=== PATIENT | female | born 1960 | race Caucasian/White ===

== ENCOUNTER 2023-11-10 12:36 | Inpatient (IN) | payer OTHER, SELFPAY ==
[2023-11-10] VITALS (23 sets, daily range): BP systolic 96–158; BP diastolic 48–107; PULSE 79–113; TEMP 36.3–36.8; O2SAT 74–95; BMI 59.2; BMI 61.6
--- NOTE | 2023-11-10 12:52 | ECG_ITS ---
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
--- NOTE | 2023-11-10 12:52 | XR_ITS ---
[address] [address] Patient Name: COLLETTE WU MRN: [id number] date: 1960 Sex: F Assigned Patient Location: ER Current Patient Location: ED.MAIN Accession/Order Number: [id number] Exam Date: 11/10/2023 13:25 Report Date: 11/10/2023 13:46 At the request of: PARADISE MASSEY Procedure: XR chest 1V EXAMINATION: XR chest 1V HISTORY: SOB COMPARISON: No relevant comparison available. TECHNIQUE: AP portable FINDINGS: LUNGS: Moderate focal infiltrate in the right upper lung zone. The left lung is clear. VASCULATURE: No increased pulmonary vasculature. PLEURA: No pneumothorax, effusion, or pleural thickening. CARDIAC: No cardiomegaly or cardiac silhouette abnormality. MEDIASTINUM: No visible mass or adenopathy. BONES: No fracture or visible bone lesion. OTHER: Negative. XR/XR chest 1V IMPRESSION: Right upper lobe pneumonia. Electronically authenticated by: NATALI BARRIOS Date: 11/10/2023 13:46
--- NOTE | 2023-11-10 12:53 | ED.SOB1 ---
HPI - SOB/Dyspnea General Chief Complaint: Shortness of Breath/Dyspnea Stated Complaint: SHORTNESS OF BREATH Time Seen by Provider: 11/10/23 12:48 Source: patient Mode of arrival: Wheelchair Limitations: no limitations History of Present Illness HPI Narrative: 63-year-old female presents for shortness of breath. She has had this for 3 days. She has been coughing up some green to yellow-colored phlegm. Her daughter is also ill but the patient does not know what the daughter has. She has not had a known fever. Her left leg is swollen but that is always the case. She is not complaining of chest pain. Related Data Home Medications ?Medication ?Instructions ?Recorded ?Confirmed amlodipine 10 mg tablet (Norvasc) 10 mg PO DAILY 11/10/23 11/10/23 duloxetine 30 mg capsule,delayed 30 mg PO DAILY 11/10/23 11/10/23 release (Cymbalta) furosemide 40 mg tablet 40 mg PO DAILY 11/10/23 11/10/23 losartan 100 mg tablet (Cozaar) 100 mg PO DAILY 11/10/23 11/10/23 metoprolol succinate 25 mg capsule 25 mg PO DAILY 11/10/23 11/10/23 sprinkle, ext. release 24 hr Allergies Allergy/AdvReac Type Severity Reaction Status Date / Time No Known Drug Allergies Allergy Verified 11/10/23 12:49 Review of Systems ROS Narrative A ten point review of systems is negative except as noted above. Exam Narrative Exam Narrative: Nurses note and vital signs reviewed and patient is not hypoxic. General: The patient appears dyspneic. She is not in acute distress. Skin: Warm, dry, no pallor noted. There is no rash noted. Head: Normocephalic, atraumatic Eye: Normal conjunctiva, no drainage Ears, Nose, Mouth, and Throat: oral mucosa is moist. Nares patent. Respiratory: Breath sounds are equal bilaterally. No rhonchi noted. Back: non-tender GI: Obese soft and nontender Musculoskeletal: Bilateral ankle edema present, more on the left than the right. Neurological: A&O, normal speech Psychiatric: Cooperative Constitutional Vital Signs, click to edit/add: Last Vital Signs Temp 98.3 F 11/10/23 12:41 Pulse 85 11/10/23 13:30 Resp 21 H 11/10/23 13:30 BP 108/83 05/06/24 13:30 Pulse Ox 93 L 11/10/23 13:30 O2 Del Method Room Air 11/10/23 13:05 O2 Flow Rate 4 11/10/23 13:05 Course Vital Signs Vital signs: Vital Signs Temperature 98.3 F 11/10/23 12:41 Pulse Rate 86 11/10/23 12:41 Respiratory Rate 30 H 11/10/23 12:41 Blood Pressure 158/102 H 11/10/23 12:41 Pulse Oximetry 74 L 11/10/23 12:41 Oxygen Delivery Method Room Air 11/10/23 12:41 Temperature 98.3 F 11/10/23 12:41 Pulse Rate 85 11/10/23 13:30 Respiratory Rate 21 H 11/10/23 13:30 Blood Pressure 108/83 11/10/23 13:30 Pulse Oximetry 93 L 11/10/23 13:30 Oxygen Delivery Method Room Air 11/10/23 13:05 Oxygen Delivery Flow Rate 4 11/10/23 13:05 MDM - SOB/Dyspnea MDM Narrative Medical decision making narrative: The patient presented with cough and an O2 sat of 74% on room air. She quickly came up to the lower 90s on nasal cannula oxygen. Blood cultures were obtained and a chest x-ray shows right upper lobe pneumonia. She was ordered IV Rocephin and Zithromax and will be admitted. Findings are discussed with the patient and her family. COVID and influenza test are negative. She had quit smoking in 1988 and has no history of COPD. Differential Diagnosis Differential diagnosis: Likely congestive heart failure, community acquired pneumonia, asthma with exacerbation and other (Pneumonia, influenza, COVID) Lab Data Attestation: I reviewed the patient's lab results. Labs: Lab Results 11/10/23 11/10/23 Range/Units 12:53 13:11 WBC 11.4 H (4.0-11.0) 10^3/uL RBC 4.43 (4.20-5.40) 10^6/uL Hgb 13.7 (12.0-16.0) g/dL Hct 41.2 (36.0-48.0) % MCV 93.0 (81.0-99.0) fL MCH 30.9 (26.7-34.0) pg MCHC 33.3 (29.9-35.2) g/dL RDW 12.9 (11.0-15.0) % Plt Count 334 (150-450) 10^3/uL MPV 10.0 (9.5-13.5) fL Neut % (Auto) 68.8 (43.0-75.0) % Lymph % (Auto) 21.0 (20.5-60.0) % [place] % (Auto) 6.9 (1.7-12.0) % Eos % (Auto) 2.2 (0.9-7.0) % Baso % (Auto) 0.8 (0.2-2.0) % Neut # (Auto) 7.8 H (1.4-6.5) 10^3/uL Lymph # (Auto) 2.4 (1.2-3.8) 10^3/uL [place] # (Auto) 0.8 (0.3-0.8) 10^3/uL Eos # (Auto) 0.3 (0.0-0.7) 10^3/uL Baso # (Auto) 0.1 (0.0-0.1) 10^3/uL Abs Immat Gran (auto) 0.03 (0.00-0.03) 10^3/uL Imm/Tot Granulo (auto) 0.3 (0.0-0.5) % Influenza Type A Ag Negative Influenza Type B Ag Negative SARS-CoV-2 Ag (CV2AG) Negative (NEGATIVE) Imaging Data Chest x-ray: Radiologist's impression: ITS Impressions Chest X-Ray 11/10/23 12:52 IMPRESSION: Right upper lobe pneumonia. Electronically authenticated by: NATALI BARRIOS Date: 11/10/2023 13:46 Discharge Plan Discharge Chief Complaint: Shortness of Breath/Dyspnea Clinical Impression: Hypoxemia, Right upper lobe pneumonia Patient Disposition: Admitted As Inpatient Time of Disposition Decision: 13:58 Condition: Fair
--- NOTE | 2023-11-10 13:24 | PC.NURSE ---
Upon arrival pt. was hypoxic at 74 percent. Pt. was placed on 4L and is not at 92 percent. Pt. has since then been laughing and presenting at a better state.
[2023-11-10 13:35] LABS: Basophils Absolute Auto 0.1 10^3/uL (0.0-0.1); Basophils Percent Auto 0.8 % (0.2-2.0); Eosinophils Absolute Auto 0.3 10^3/uL (0.0-0.7); Eosinophils Percent Auto 2.2 % (0.9-7.0); Hematocrit 41.2 % (36.0-48.0); Hemoglobin 13.7 g/dL (12.0-16.0); Immature Granulocytes Abs Auto 0.03 10^3/uL (0.00-0.03); Immature Granulocytes Pct Auto 0.3 % (0.0-0.5); Lymphocytes Absolute Auto 2.4 10^3/uL (1.2-3.8); Mean Corpuscular HGB Conc 33.3 g/dL (29.9-35.2); Mean Corpuscular Hemoglobin 30.9 pg (26.7-34.0); Monocytes Absolute Auto 0.8 10^3/uL (0.3-0.8); Monocytes Percent Auto 6.9 % (1.7-12.0); Neutrophils Absolute Auto 7.8 10^3/uL (1.4-6.5); Neutrophils Percent Auto 68.8 % (43.0-75.0); Platelet Count 334 10^3/uL (150-450); Red Blood Count 4.43 10^6/uL (4.20-5.40); Red Cell Distribution Width 12.9 % (11.0-15.0); White Blood Count 11.4 10^3/uL (4.0-11.0)
[2023-11-10 13:44] LABS: Influenza Virus A Antigen Negative; Influenza Virus B Antigen Negative; Internal Control Within Normal Limits; SARS-CoV-2 Ag NEGATIVE (NEGATIVE)
[2023-11-10] MEDS: CEFTRIAXONE 1,000 MG in 0.9 % SODIUM CHLORIDE 50 ML 100 MG IV (13:52)
[2023-11-10 14:10] LABS: Anion Gap 15.4; BUN Creatinine Ratio 20.9; Carbon Dioxide 23.7 mmol/L (21.0-32.0); Chloride 103 mmol/L (98-107); Estimated GFR (African America >60 (>=60); Estimated GFR (Non-African Ame >60 (>=60); Glucose 124 mg/dL (74-106); Potassium 4.1 mmol/L (3.5-5.1); Sodium 138 mmol/L (136-145); Troponin I High Sensitivity 17.8 pg/mL (4.0-51.3)
[2023-11-10 14:11] LABS: Lactate/Lactic Acid 2.1 mmol/L (0.4-2.0)
[2023-11-10] MEDS: AZITHROMYCIN 500 MG in 0.9 % SODIUM CHLORIDE 250 ML 250 MG IV (14:30)
[2023-11-10 14:54] LABS: PROCALCITONIN <0.05 ng/mL (0.00-0.50)
[2023-11-10 16:13] LABS: Adenovirus NOT DETECTED (NOT DETECTE); Bordetella parapertussis NOT DETECTED (NOT DETECTE); Coronavirus 229E NOT DETECTED (NOT DETECTE); Coronavirus HKU1 NOT DETECTED (NOT DETECTE); Coronavirus NL63 NOT DETECTED (NOT DETECTE); Coronavirus OC43 NOT DETECTED (NOT DETECTE); Human Metapneumovirus NOT DETECTED (NOT DETECTE); Human Rhinovirus/Enterovirus NOT DETECTED (NOT DETECTE); Influenza A NOT DETECTED (NOT DETECTE); Influenza B NOT DETECTED (NOT DETECTE); Mycoplasma pneumoniae NOT DETECTED (NOT DETECTE); Parainfluenza Virus 1 NOT DETECTED (NOT DETECTE); Parainfluenza Virus 2 NOT DETECTED (NOT DETECTE); Parainfluenza Virus 3 NOT DETECTED (NOT DETECTE); Parainfluenza Virus 4 NOT DETECTED (NOT DETECTE); Respiratory Syncytial Virus NOT DETECTED (NOT DETECTE); SARS-CoV-2 NOT DETECTED (NOT DETECTE)
[2023-11-10 16:34] LABS: D Dimer 3.09 mg/L FEU (<=0.59)
[2023-11-10 16:35] LABS: Lactate/Lactic Acid 1.5 mmol/L (0.4-2.0)
[2023-11-10] MEDS: ENOXAPARIN SODIUM 100 MG/ML SYRINGE 150 MG SUBQ (16:50)
[2023-11-10] MEDS: LACTATED RINGER'S SOLUTION 1,000 ML 125 ML IV (16:52)
--- NOTE | 2023-11-10 17:40 | CT_ITS ---
[address] [address] Patient Name: COLLETTE WU MRN: [id number] date: 1960 Sex: F Assigned Patient Location: MS Current Patient Location: Accession/Order Number: [id number] Exam Date: 11/10/2023 17:32 Report Date: 11/10/2023 18:04 At the request of: TALON SPEAR Procedure: CT angio chest EXAM: CT angio chest HISTORY: Hypoxia, elevated D-dimer, suspected PE COMPARISON: None. TECHNIQUE: CT chest with intravenous contrast was performed with timing for the evaluation for pulmonary arteries. Multiplanar reformats were performed. MIP (maximum intensity projection) images or 3D post processing was performed. Dose reduction techniques were achieved by using automated exposure control and/or adjustment of mA and/or kV according to patient size and/or use of iterative reconstruction technique. FINDINGS: Lungs: No pneumothorax. Patchy bilateral consolidations, seen in the right upper and left lower lobes, representing multifocal pneumonia or pulmonary infarction. Airways: Normal. Mediastinum: No adenopathy. Aorta: No aneurysm. Cardiac: Bilateral ventricles measure 4.1 cm without reflux of contrast into the IVC. No definite evidence of heart strain. Correlation with echocardiography and clinical symptoms is recommended. No pericardial effusion. Pulmonary vasculature: Filling defect of the distal right pulmonary artery, extending to the segmental branches of the right upper and lower lobes and filling defect involving segmental branches of the left lower lobes. Prominent main pulmonary artery, measuring 3.6 cm, can be due to pulmonary emphysema or chronic hypertension. Bones: No acute bony abnormality. Axilla: No adenopathy. Thyroid gland: No abnormality demonstrated on provided imaging. Soft tissues: Unremarkable. Upper abdomen: Unremarkable. Additional findings: None. CT/CT angio chest IMPRESSION: Acute pulmonary embolism involving distal right pulmonary artery, extending to the segmental branches of the right upper and lower lobes and filling defect involving segmental branches of the left lower lobes. Bilateral ventricles measure 4.1 cm without reflux of contrast into the IVC. No definite evidence of heart strain. Correlation with echocardiography and clinical symptoms is recommended. Prominent main pulmonary artery, measuring 3.6 cm, can be due to pulmonary emphysema or chronic hypertension. Patchy bilateral consolidations, seen in the right upper and left lower lobes, representing multifocal pneumonia or pulmonary infarction. Electronically authenticated by: MICHAEL INGRAM Date: 11/10/2023 18:04
--- NOTE | 2023-11-10 17:44 | P.HP_ITS ---
<Statement entered by Shaikh Lisa MD - 11/11/23 11:08> This documentation has been reviewed and approved.This patient was not seen yesterday. However her medical chart was reviewed, case discussed with [facility] provider. Patient initially presented with progressive shortness of breath and was found to have Profound hypoxia requiring oxygen supplementation via nasal cannula. Her initial workup indicated that she has right upper lobe pneumonia for which she was started on IV Rocephin and azithromycin. However, we suspected acute pulmonary embolism given her presentation that prompted a CTA of chest revealing acute bilateral pulmonary embolism. She was started on therapeutic Lovenox and transitioned to ICU because of increased work of breathing and borderline hypoxia on 6 L of oxygen via nasal cannula. HPI H&P: HPI History of Present Illness Chief complaint: SHORTNESS OF BREATH Pnemonia Hypoxemia Narrative: 11/10/23 0623 This is a 63-year-old female patient with a past medical history as outlined below primarily significant for hypertension, peripheral edema, and depression along with morbid obesity; who presented to the ED today complaining of a 3-day history of shortness of breath. The patient reports onset of minimal URI s ymptoms 3 days ago but immediate onset of shortness of breath. She complains of a mild intermittent cough productive of clear to green sputum at times. She reports chills but did not take her temperature at home. She has no respiratory history of asthma or COPD but does have a remote history of tobacco abuse with a 5 PYH only. She has a chronically swollen left lower extremity of unclear etiol ogy. She reported to the ED for further evaluation as she was extremely short of breath with minimal activity. Workup in the ED revealed hypoxia (74% on room air on arrival), mild leukocytosis (11.4), mild hyperglycemia (124), and mildly elevated BNP (1846). Lactic acid was also minimally elevated (2.1), but a procalcitonin was normal. Influenza and COVID swabs were also negative. Chest x-ray revealed right upper lobe infiltrate. She is being admitted as an inpatient to the hospitalist service for right upper lobe pneumonia and acute hypoxic respiratory failure. At the time of my exam the patient is resting in bed and is notably short of breath with minimal conversation or activity. Just with transferring from a wheelchair to her bed, nursing noted hypoxia in the mid 70s requiring 5 L of O2 for recovery. As her hypoxia appears out of proportion to the infiltrate noted on imaging, we will obtain a D-dimer to begin assessing for a PE. If this is elevated we will obtain a CTA of the chest and will have low threshold to initiate therapeutic Lovenox dosing. Opioid HPI Opioid Management Most Recent Opioid Data: Last ORT Total Score 0 11/10/23 16:14 Last ORT Risk Category Low Risk 11/10/23 16:14 Review of Systems ROS Status of ROS 10 or more systems reviewed and unremark able except as noted in history and below [facility] Medical History (Updated 11/10/23 @ 16:09 by Ana Maria Mendenhall NP) Peripheral edema ?R60.0 - Localized edema (ICD-10) Depression ?F32.A - Depression, unspecified (ICD-10) HTN (hypertension) ?I10 - Essential (primary) hypertension (ICD-10) Social History Highest level of school completed/degree received: high school graduate Meds Home Medications and Allergies Home Medications ?Medication ?Instructions ?Recorded ?Confirmed ?Type amlodipine 10 mg tablet (Norvasc) 10 mg PO DAILY 11/10/23 11/10/23 History duloxetine 30 mg capsule,delayed 30 mg PO DAILY 11/10/23 11/10/23 History release (Cymbalta) furosemide 40 mg tablet 40 mg PO DAILY 11/10/23 11/10/23 History losartan 100 mg tablet (Cozaar) 100 mg PO DAILY 11/10/23 11/10/23 History metoprolol succinate 25 mg capsule 25 mg PO DAILY 11/10/23 11/10/23 History sprinkle, ext. release 24 hr Allergies Allergy/AdvReac Type Severity Reaction Status Date / Time No Known Drug Allergies Allergy Verified 11/10/23 12:49 Exam Constitutional Vital Signs, click to edit/add: Last Vital Signs Temp 98.2 F 11/10/23 16:07 Pulse 79 11/10/23 16:58 Resp 22 H 11/10/23 16:07 BP 157/98 H 11/10/23 16:07 Pulse Ox 94 L 11/10/23 16:43 O2 Del Method Nasal Cannula 11/10/23 16:43 O2 Flow Rate 5 11/10/23 16:43 Common normals: no apparent distress, oriented x3, alert and well nourished General appearance: cooperative Orientation/consciousness: Yes awake HENMT Common normals: normocephalic, head/scalp atraumatic, hearing grossly normal bilaterally, external nose normal and moist oral mucous membranes Eye Common normals: PERRL, EOMs intact bilaterally, conjunctivae normal and no scleral icterus Alignment: alignment normal Eyelid: eyelids normal Neck & C-Spine Common normals: full ROM, supple and no JVD Chest Common normals: inspection of chest normal Chest: symmetrical chest wall rise Respiratory Common normals: normal respiratory effort, no retractions, no use of accessory muscles and clear to auscultation bilaterally Effort & inspection: able to speak in complete sentences Auscultation: diminished lung sounds (LLL); no rales, no rhonchi and no wheezes Cardio Common normals: no JVD, regular rate, regular rhythm, S1 normal heart sound, S2 normal heart sound, no gallops, no clicks, no murmurs, no rub and peripheral pulses 2+ throughout GI Common normals: Normal to inspection, nondistended, normoactive bowel sounds present, soft to palpation, non-tender, no hepatosplenomegaly, no masses and no bruits Bladder/kidney exam: bladder normal to palpation Back & Pelvis Common normals: thoracic and lumbar spine normal to inspection Extremity Common normals: normal capillary refill and no pedal edema General: normal exam except as noted and edema (LLE brawny edema knee to ankle, Tr bilat insteps/ankles); no clubbing and no cyanosis Neuro Lelo Coma Scale: GCS not evaluated Common normals: CN's II-XII intact bilaterally, moves all extremities, no focal motor deficits and no sensory deficits noted Speech: speech normal Motor exam: strength 5/5 throughout Psych Common normals: mental status grossly normal, thought process normal, affect normal and activity/motor behavior normal Results Labs Labs: Short CBC 11/10/23 Range/Units 13:11 WBC 11.4 H (4.0-11.0) 10^3/uL Hgb 13.7 (12.0-16.0) g/dL Hct 41.2 (36.0-48.0) % Plt Count 334 (150-450) 10^3/uL BMP 11/10/23 13:11 Sodium 138 Potassium 4.1 Chloride 103 Carbon Dioxide 23.7 BUN 19.0 H Creatinine 0.91 Glucose 124 H Calcium 9.0 Pulse Oximetry Attestation: I have reviewed the pertinent pulse oximetry results. Imaging Chest x-ray: Attestation: I have reviewed the pertinent imaging results. Radiologist's impression: IMPRESSION: Right upper lobe pneumonia. Assessment and Plan Assessment and Plan (1) Right upper lobe pneumonia: Assessment and Plan: Acute * Adm inpatient * We expect greater than a 2 midnight stay for medically necessary hospital care including IVFs, IV antibiotics, further imaging and work up of hypoxia * IVPB Rocephin & Azithromycin * Duonebs q4h PRN * Guaifenesin XR BID and OPEP for sputum mobilization * Sputum culture if able to obtain * BC x 2 obtained in the ED * CBC, CMP daily (2) Acute respiratory failure with hypoxia: Assessment and Plan: Acute * Profound hypoxia on RA (74%) - out of proportion to RUL infiltrate noted on CXR * Obtain D-dimer - if elevated obtain CTA chest * Low threshold to empirically treat w/ therapeutic lovenox pending clinical course * O2 as needed to keep sats above 90%, currently at 5L NC (3) Depression: Assessment and Plan: Chronic * Continue home Cymbalta (4) HTN (hypertension): Assessment and Plan: Chronic * Continue home amlodipine, losartan, and metoprolol
--- NOTE | 2023-11-10 18:22 | CA_ITS ---
Patient Name: COLLETTE WU MR#: [id number] : 1960 Exam Date: 11/11/2023 Ordering Doctor: SHAIKH Niels SIMMS . ECHOCARDIOGRAM REPORT PROCEDURE: CA ECHO DOPPLER COMPLETE INDICATIONS: Pulmonary emboli, elevated BNP, hypertension COMPARISON: None. DESCRIPTION: COMPLETE ECHOCARDIOGRAM Real-time transthoracic echocardiography with 2D, M-mode, spectral and color flow Doppler performed. QUALITY: Technically difficult due to patient's condition. 63 , 347#, BSA 2.44 m2, BP 153/85 LEFT VENTRICLE: Normal chamber size. Normal left ventricular wall thickness. LV EF: Global left ventricular systolic function is difficult to assess but appears preserved; visually estimated ejection fraction is 55 to 60%. Unable to assess regional wall motion abnormalities. DIASTOLIC: Unable to assess diastolic function. ATRIAL SEPTUM: Inadequately seen. LEFT ATRIUM: Normal chamber size. RIGHT ATRIUM: Normal chamber size. RIGHT VENTRICLE: Poorly seen; appears normal in size with preserved systolic function. TRICUSPID VALVE: Normal mobility and thickness. Trivial regurgitation. Doppler studies reveal moderately (45-60) elevated right sided pressures. RVSP 48 mmHg MITRAL VALVE: Normal mobility and thickness. No mitral regurgitation. AORTIC VALVE: Normal trileaflet appearance. No visible sclerosis. Normal leaflet mobility. No evidence of aortic valve stenosis. No aortic regurgitation. AORTIC ROOT: Normal diameter and appearance. Ascending aorta is normal in size. PULMONIC VALVE: Not well visualized. No stenosis. No regurgitation. PERICARDIUM: Anterior free space; trivial effusion versus fat pad. IVC: IVC is dilated (2.4 cm) with only partial collapse. CONCLUSION: 1. Global left ventricular systolic function is difficult to assess but appears preserved; visually estimated ejection fraction is 55 to 60% 2. The right ventricle is poorly seen; it appears normal in size with preserved systolic function 3. Valves are poorly seen; no obvious valvular abnormalities 4. Moderately elevated right ventricular systolic pressure; RVSP 48 mmHg 5. Anterior free space; trivial effusion versus fat pad Adult Echocardiography Procedure Report Left Ventricle LVEDD (3.7 - 5.6 cm): 4.59 cm LVESD (2.2 - 4.0 cm): 3.22 cm LVIVS thickness (0.6 - 1.2 cm): 0.83 cm LVPW thickness (0.5 - 1.0 cm): 0.95 cm LVOT Max Gradient: 2.48 mm[Hg] LVOT Area (cm2): 0.79 m/s Peak Velocity (LVOT): 0.79 m/s LVOT Diameter 2.08 cm Left Atrium Left Atrium Systolic Dimension: 3.42 cm Mitral Valve MV E to A Ratio: 0.86 Mitral Valve A-Wave Peak Velocity: 0.70 m/s Mitral Valve E-Wave Peak Velocity: 0.59 m/s Right Ventricle Aorta AO Root Diam: 2.84 cm Ascending Ao Diam: 2.90 cm Aortic Valve AoV Area (Peak Brendan): 3.02 cm2, 3.02 cm2 Peak Velocity(Antegrade Flow): 0.89 m/s Peak Gradient(Antegrade Flow): 3.16 mm[Hg] Tricuspid Valve Peak Velocity (Regurgitant Flow): 2.87 m/s Pulmonic Valve Peak Gradient: 3.98 mm[Hg], 5.33 mm[Hg] Right Atrium Right Atrium Systolic Pressure: 56.45 ml, 56.45 ml Dictated by: Chris Jarrell M.D. on 11/11/2023 at 16:56 Approved by: Chris Jarrell M.D. on 11/11/2023 at 17:00
--- NOTE | 2023-11-10 18:32 | PC.NURSE ---
Spoke to Dr Lisa braga/tee Heparin. Patient being moved to ICU.
[2023-11-10] MEDS: GUAIFENESIN 600 MG TAB.ER.12H PO (21:07)
[2023-11-11] VITALS (82 sets, daily range): BP systolic 101–153; BP diastolic 60–85; PULSE 69–109; TEMP 36.4–36.6; O2SAT 81–100
[2023-11-11] MEDS: LACTATED RINGER'S SOLUTION 1,000 ML 125 ML IV ×2 (01:47→08:08)
[2023-11-11] MEDS: ENOXAPARIN SODIUM 100 MG/ML SYRINGE 150 MG SUBQ (04:34)
[2023-11-11 04:43] LABS: Basophils Absolute Auto 0.1 10^3/uL (0.0-0.1); Eosinophils Absolute Auto 0.5 10^3/uL (0.0-0.7); Eosinophils Percent Auto 5.1 % (0.9-7.0); Hematocrit 39.9 % (36.0-48.0); Hemoglobin 12.6 g/dL (12.0-16.0); Immature Granulocytes Abs Auto 0.02 10^3/uL (0.00-0.03); Immature Granulocytes Pct Auto 0.2 % (0.0-0.5); Lymphocytes Absolute Auto 2.8 10^3/uL (1.2-3.8); Lymphocytes Percent Auto 30.7 % (20.5-60.0); Mean Corpuscular HGB Conc 31.6 g/dL (29.9-35.2); Mean Corpuscular Hemoglobin 30.6 pg (26.7-34.0); Mean Corpuscular Volume 96.8 fL (81.0-99.0); Mean Platelet Volume 10.1 fL (9.5-13.5); Monocytes Absolute Auto 0.7 10^3/uL (0.3-0.8); Monocytes Percent Auto 7.7 % (1.7-12.0); Neutrophils Percent Auto 55.3 % (43.0-75.0); Platelet Count 290 10^3/uL (150-450); Red Blood Count 4.12 10^6/uL (4.20-5.40); Red Cell Distribution Width 12.8 % (11.0-15.0); White Blood Count 9.1 10^3/uL (4.0-11.0)
[2023-11-11 05:04] LABS: Alanine Aminotransferase 18 U/L (14-59); Albumin Globulin Ratio 0.6; Albumin Level 2.5 g/dL (3.4-5.0); Alkaline Phosphatase 86 U/L (46-116); Anion Gap 12.9; Aspartate Amino Transferase 13 U/L (15-37); BUN Creatinine Ratio 23.4; Bilirubin Total 0.7 mg/dL (0.2-1.0); Calcium 8.6 mg/dL (8.5-10.1); Carbon Dioxide 25.4 mmol/L (21.0-32.0); Chloride 105 mmol/L (98-107); Estimated GFR (African America >60 (>=60); Estimated GFR (Non-African Ame >60 (>=60); Globulin 4.3 g/dL; Glucose 94 mg/dL (74-106); Potassium 4.3 mmol/L (3.5-5.1); Sodium 139 mmol/L (136-145); Total Protein 6.8 g/dL (6.4-8.2)
[2023-11-11] MEDS: AMLODIPINE BESYLATE 5 MG TABLET 10 MG PO (08:08)
[2023-11-11] MEDS: AZITHROMYCIN 250 MG TABLET 500 MG PO (08:08)
[2023-11-11] MEDS: GUAIFENESIN 600 MG TAB.ER.12H PO ×2 (08:09→20:30)
[2023-11-11] MEDS: APIXABAN 5 MG TABLET 10 MG PO ×2 (08:09→20:30)
[2023-11-11] MEDS: LOSARTAN POTASSIUM 50 MG TABLET 100 MG PO (08:09)
[2023-11-11] MEDS: METOPROLOL SUCCINATE 25 MG TAB.ER.24H PO (08:09)
[2023-11-11] MEDS: DULOXETINE HCL 30 MG CAPSULE.DR PO (08:09)
--- NOTE | 2023-11-11 10:50 | P.IMPN_ITS ---
Progress Note: A&P Assessment and Plan (1) Acute respiratory failure with hypoxia: Assessment and Plan: Acute respiratory failure with hypoxia likely secondary to acute bilateral pulmonary embolism. Initially presumed to be from right upper lobe pneumonia. He was started on IV Rocephin and azithromycin for it. Patient is a still profoundly hypoxic and requiring several liters of oxygen via nasal cannula. However she is in no respiratory distress currently. Treat underlying pulmonary embolism. Wean off oxygen as tolerated. (2) Bilateral pulmonary embolism: Assessment and Plan: Acute b/l pulmonary embolism with elevated BNP. No evidence of right heart strain on echocardiogram. Awaiting echo results cardiac structure and rule out it heart strain. She was started on subcutaneous Lovenox overnight but transitioned to Eliquis earlier today. Patient is stable hemodynamics. She was transferred to ICU overnight for worsening hypoxia. Patient is stable for downgrade to [facility] floor. (3) Right upper lobe pneumonia: Assessment and Plan: Questionable pneumonia on chest x-ray upon admission. patient was started on IV Rocephin and azithromycin for it. Discontinue antibiotics as patient likely had bilateral pulmonary embolism and not pneumonia Qualifiers: Pneumonia type: due to unspecified organism Qualified Code(s): J18.9 - Pneumonia, unspecified organism (4) Elevated brain natriuretic peptide (BNP) level: Assessment and Plan: Due to pulmonary embolism. Echocardiogram pending. (5) Lactic acid acidosis: Assessment and Plan: Improved with IV hydration. (6) Depression: Assessment and Plan: Continue Cymbalta. Qualifiers: Depression Type: major depressive disorder Major depression recurrence: recurrent Active/Remission status: in full remission Qualified Code(s): F33.42 - Major depressive disorder, recurrent, in full remission (7) HTN (hypertension): Assessment and Plan: Goal. Continue with patient's home medications. Lasix and Toprol were initially on hold?restarted as blood pressure is above goal Qualifiers: Hypertension type: primary hypertension Qualified Code(s): I10 - Essential (primary) hypertension Plan Patient will require inpatient treatment of acute pulmonary embolism as she has elevated cardiac markers, profound hypoxia Requiring several liters of oxygen via nasal cannula. She was seventy-five percent on room air on arrival to Emergency Room. She will need close monitoring for potential cardiac decompensat ion and anticipated to stay for two midnights for her current illness. Internal Medicine - PN: Subj Subjective Interval history: Seen and examined. Patient is started on 6-7 L of oxygen via nasal cannula. She reports feeling better compared to when she arrived last evening. No overnight events. Exam Constitutional Vital Signs, click to edit/add: Last Vital Signs Temp 98 F 11/11/23 07:57 Pulse 78 11/11/23 10:43 Resp 18 11/11/23 10:43 BP 153/85 H 11/11/23 07:50 Pulse Ox 92 L 11/11/23 10:44 O2 Del Method Nasal Cannula 11/11/23 10:44 O2 Flow Rate 7 11/11/23 10:44 Documenting provider has reviewed patient's vital signs: yes Common normals: no apparent distress and oriented x3 Nutritional appearance: obese HENMT Common normals: normocephalic and head/scalp atraumatic Respiratory Common normals: normal respiratory effort, no use of accessory muscles and clear to auscultation bilaterally Effort & inspection: able to speak in complete sentences Cardio Common normals: no JVD, regular rate, regular rhythm, S1 normal heart sound and S2 normal heart sound Extremity General: edema (Bilateral , Left LE > RLE) Neuro Common normals: oriented x3, CN's II-XII intact bilaterally, moves all extremit ies, no focal motor deficits and no sensory deficits noted Psych Common normals: mental status grossly normal, denies homicidal ideation and denies suicidal ideation Internal Medicine - PN: Obj Da Labs Labs: Laboratory Results - last 24 hr 11/10/23 11/10/23 11/10/23 12:53 13:11 16:04 WBC 11.4 H RBC 4.43 Hgb 13.7 Hct 41.2 MCV 93.0 MCH 30.9 MCHC 33.3 RDW 12.9 Plt Count 334 MPV 10.0 Neut % (Auto) 68.8 Lymph % (Auto) 21.0 [place] % (Auto) 6.9 Eos % (Auto) 2.2 Baso % (Auto) 0.8 Neut # (Auto) 7.8 H Lymph # (Auto) 2.4 [place] # (Auto) 0.8 Eos # (Auto) 0.3 Baso # (Auto) 0.1 Abs Immat Gran (auto) 0.03 Imm/Tot Granulo (auto) 0.3 D-Dimer 3.09 H* Sodium 138 Potassium 4.1 Chloride 103 Carbon Dioxide 23.7 Anion Gap 15.4 BUN 19.0 H Creatinine 0.91 Est GFR ( Amer) >60 Est GFR (Non-Af Amer) >60 BUN/Creatinine Ratio 20.9 Glucose 124 H Lactate 2.1 H 1.5 Calcium 9.0 Total Bilirubin AST ALT Alkaline Phosphatase Troponin I High Sens 17.8 NT-Pro-B Natriuret Pep 1846.0 H* Total Protein Albumin Globulin Albumin/Globulin Ratio Procalcitonin <0.05 Adenovirus (PCR) Not detected B. pertussis DNA (PCR) Not detected B.parapertussis DNA PCR Not detected C. pneumoniae DNA (PCR) Not detected Coronavirus Type OC43 Not detected Coronavirus Type HKU1 Not detected Coronavirus Type 229E Not detected Coronavirus Type NL63 Not detected Human Metapneumovir PCR Not detected Influenza Type A Ag Negative Influenza Type A (PCR) Not detected Influenza Type B Ag Negative Influenza Type B (PCR) Not detected M. pneumoniae (PCR) Not detected Parainfluenza PCR Not detected Parainfluenza 2 (PCR) Not detected Parainfluenza 3 (PCR) Not detected Parainfluenza 4 (PCR) Not detected RSV (RT-PCR) Not detected Entero/Rhino (PCR) Not detected SARS-CoV-2 (PCR) Not detected SARS-CoV-2 Ag (CV2AG) Negative 11/11/23 04:31 WBC 9.1 RBC 4.12 L Hgb 12.6 Hct 39.9 MCV 96.8 MCH 30.6 MCHC 31.6 RDW 12.8 Plt Count 290 MPV 10.1 Neut % (Auto) 55.3 Lymph % (Auto) 30.7 [place] % (Auto) 7.7 Eos % (Auto) 5.1 Baso % (Auto) 1.0 Neut # (Auto) 5.0 Lymph # (Auto) 2.8 [place] # (Auto) 0.7 Eos # (Auto) 0.5 Baso # (Auto) 0.1 Abs Immat Gran (auto) 0.02 Imm/Tot Granulo (auto) 0.2 D-Dimer Sodium 139 Potassium 4.3 Chloride 105 Carbon Dioxide 25.4 Anion Gap 12.9 BUN 18.0 Creatinine 0.77 Est GFR ( Amer) >60 Est GFR (Non-Af Amer) >60 BUN/Creatinine Ratio 23.4 Glucose 94 Lactate Calcium 8.6 Total Bilirubin 0.7 AST 13 L ALT 18 Alkaline Phosphatase 86 Troponin I High Sens NT-Pro-B Natriuret Pep 1019.0 H Total Protein 6.8 Albumin 2.5 L Globulin 4.3 Albumin/Globulin Ratio 0.6 Procalcitonin Adenovirus (PCR) B. pertussis DNA (PCR) B.parapertussis DNA PCR C. pneumoniae DNA (PCR) Coronavirus Type OC43 Coronavirus Type HKU1 Coronavirus Type 229E Coronavirus Type NL63 Human Metapneumovir PCR Influenza Type A Ag Influenza Type A (PCR) Influenza Type B Ag Influenza Type B (PCR) M. pneumoniae (PCR) Parainfluenza PCR Parainfluenza 2 (PCR) Parainfluenza 3 (PCR) Parainfluenza 4 (PCR) RSV (RT-PCR) Entero/Rhino (PCR) SARS-CoV-2 (PCR) SARS-CoV-2 Ag (CV2AG)
--- NOTE | 2023-11-11 10:56 | CM.NOTE ---
Rounds made with Dr. Gonzalez, pt continues on high flow oxygen. PT and OT will evaluate pt today for discharge planning. Continue to attempt to wean oxygen.
--- NOTE | 2023-11-11 15:39 | CM.NOTE ---
Pt given 30 day free trial card and 10 dollar co-pay card for Eliquis. Pt given information on new medication and reason for taking medication. Pt and daughter denies questions or concerns.
[2023-11-12] VITALS (82 sets, daily range): BP systolic 110–138; BP diastolic 71–83; PULSE 67–107; TEMP 36.6; O2SAT 88–95
[2023-11-12 05:17] LABS: Basophils Absolute Auto 0.1 10^3/uL (0.0-0.1); Basophils Percent Auto 0.7 % (0.2-2.0); Eosinophils Absolute Auto 0.6 10^3/uL (0.0-0.7); Eosinophils Percent Auto 6.4 % (0.9-7.0); Hematocrit 37.7 % (36.0-48.0); Hemoglobin 11.7 g/dL (12.0-16.0); Immature Granulocytes Abs Auto 0.03 10^3/uL (0.00-0.03); Immature Granulocytes Pct Auto 0.3 % (0.0-0.5); Lymphocytes Absolute Auto 2.3 10^3/uL (1.2-3.8); Lymphocytes Percent Auto 25.7 % (20.5-60.0); Mean Corpuscular Hemoglobin 29.9 pg (26.7-34.0); Mean Corpuscular Volume 96.4 fL (81.0-99.0); Mean Platelet Volume 10.1 fL (9.5-13.5); Monocytes Absolute Auto 0.8 10^3/uL (0.3-0.8); Monocytes Percent Auto 8.5 % (1.7-12.0); Neutrophils Absolute Auto 5.3 10^3/uL (1.4-6.5); Neutrophils Percent Auto 58.4 % (43.0-75.0); Platelet Count 314 10^3/uL (150-450); Red Blood Count 3.91 10^6/uL (4.20-5.40); Red Cell Distribution Width 12.9 % (11.0-15.0); White Blood Count 9.1 10^3/uL (4.0-11.0)
[2023-11-12 05:32] LABS: Alanine Aminotransferase 17 U/L (14-59); Albumin Globulin Ratio 0.6; Albumin Level 2.4 g/dL (3.4-5.0); Alkaline Phosphatase 83 U/L (46-116); Anion Gap 9.1; Aspartate Amino Transferase 10 U/L (15-37); BUN Creatinine Ratio 19.7; Bilirubin Total 0.5 mg/dL (0.2-1.0); Calcium 8.5 mg/dL (8.5-10.1); Carbon Dioxide 28.2 mmol/L (21.0-32.0); Chloride 105 mmol/L (98-107); Estimated GFR (African America >60 (>=60); Estimated GFR (Non-African Ame >60 (>=60); Globulin 4.2 g/dL; Glucose 96 mg/dL (74-106); Potassium 4.3 mmol/L (3.5-5.1); Sodium 138 mmol/L (136-145); Total Protein 6.6 g/dL (6.4-8.2)
[2023-11-12] MEDS: FUROSEMIDE 40 MG/4 ML VIAL IVP ×2 (08:06→20:27)
[2023-11-12] MEDS: LOSARTAN POTASSIUM 50 MG TABLET 100 MG PO (08:06)
[2023-11-12] MEDS: AMLODIPINE BESYLATE 5 MG TABLET 10 MG PO (08:06)
[2023-11-12] MEDS: APIXABAN 5 MG TABLET 10 MG PO ×2 (08:06→20:27)
[2023-11-12] MEDS: GUAIFENESIN 600 MG TAB.ER.12H PO ×2 (08:06→20:27)
[2023-11-12] MEDS: DULOXETINE HCL 30 MG CAPSULE.DR PO (08:06)
[2023-11-12] MEDS: METOPROLOL SUCCINATE 25 MG TAB.ER.24H PO (08:06)
--- NOTE | 2023-11-12 10:18 | PM.IMPN1 ---
Progress Note: A&P Assessment and Plan (1) Acute respiratory failure with hypoxia: Assessment and Plan: Acute respiratory failure with hypoxia likely secondary to acute bilateral pulmonary embolism and acute on chronic diastolic HF. Hypoxia improved and patient is now on 3 L O2 via NC after IV Lasix. C/w Eliquis and IV lasix. Wean off oxygen as tolerated. (2) Acute on chronic diastolic heart failure: Assessment and Plan: Acute on chronic diastolic HF - started on IV lasix. Poor quality film and diastolic function could not be determined but patient had dilated IVC and with her hx of HTN, morbid obesity, it seems likely that she has underlying HFpeF. (3) Bilateral pulmonary embolism: Assessment and Plan: Acute b/l pulmonary embolism with elevated BNP. No evidence of right heart strain on echocardiogram. Normal EF, poor quality film and diastolic function could not determined. However, had dilated IVC - started on IV lasix. Patient has responsed well and her hypoxia has improved within few hours of it. (4) Right upper lobe pneumonia: Assessment and Plan: Questionable pneumonia on chest x-ray upon admission. patient was started on IV Rocephin and azithromycin for it. Not on abx anmoyre Qualifiers: Pneumonia type: due to unspecified organism Qualified Code(s): J18.9 - Pneumonia, unspecified organism (5) Elevated brain natriuretic peptide (BNP) level: Assessment and Plan: Due to pulmonary embolism. Echocardiogram normal LVEF, poor quality films. Likely has prior hx of HFpEF given hx of HTN, morbid obesity. Started on lasix. Monitor I/O , daily weights. Monitor serum electrolytes and creatinine closely. . (6) Lactic acid acidosis: Assessment and Plan: Improved with IV hydration. (7) Depression: Assessment and Plan: Continue Cymbalta. Qualifiers: Depression Type: major depressive disorder Major depression recurrence: recurrent Active/Remission status: in full remission Qualified Code(s): F33.42 - Major depressive disorder, recurrent, in full remission (8) HTN (hypertension): Assessment and Plan: At Goal. Continue with patient's home medications. Qualifiers: Hypertension type: primary hypertension Qualified Code(s): I10 - Essential (primary) hypertension Plan Patient will require inpatient treatment of acute pulmonary embolism and acute on chronic diastolic HF, as she is still hypoxic, requiring IV diuretic therapy. She will need close monitoring of serum electrolytes, renal function and respiratory status. Internal Medicine - PN: Subj Subjective Interval history: Seen and examined. No overnight events. Was on 6-7 L O2 but now improved to 3 L O2 via NC after IV lasix. No active complaints to offer. Exam Constitutional Vital Signs, click to edit/add: Last Vital Signs Temp 98 F 11/12/23 08:25 Pulse 77 11/12/23 08:10 Resp 15 11/12/23 08:10 BP 110/71 11/12/23 08:03 Pulse Ox 94 L 11/12/23 10:01 O2 Del Method Nasal Cannula 11/12/23 10:01 O2 Flow Rate 2 11/12/23 10:01 Documenting provider has reviewed patient's vital signs: yes Common normals: no apparent distress and oriented x3 Nutritional appearance: obese HENMT Common normals: normocephalic and head/scalp atraumatic Respiratory Common normals: normal respiratory effort, no use of accessory muscles and clear to auscultation bilaterally Effort & inspection: able to speak in complete sentences Cardio Common normals: no JVD, regular rate, regular rhythm, S1 normal heart sound and S2 normal heart sound Extremity General: edema (Bilateral , Left LE > RLE) Neuro Common normals: oriented x3, CN's II-XII intact bilaterally, moves all extremities, no focal motor deficits and no sensory deficits noted Psych Common normals: mental status grossly normal, denies homicidal ideation and denies suicidal ideation Internal Medicine - PN: Obj Da Labs Labs: Laboratory Results - last 24 hr 11/12/23 03:59 WBC 9.1 RBC 3.91 L Hgb 11.7 L Hct 37.7 MCV 96.4 MCH 29.9 MCHC 31.0 RDW 12.9 Plt Count 314 MPV 10.1 Neut % (Auto) 58.4 Lymph % (Auto) 25.7 [place] % (Auto) 8.5 Eos % (Auto) 6.4 Baso % (Auto) 0.7 Neut # (Auto) 5.3 Lymph # (Auto) 2.3 [place] # (Auto) 0.8 Eos # (Auto) 0.6 Baso # (Auto) 0.1 Abs Immat Gran (auto) 0.03 Imm/Tot Granulo (auto) 0.3 Sodium 138 Potassium 4.3 Chloride 105 Carbon Dioxide 28.2 Anion Gap 9.1 BUN 15.0 Creatinine 0.76 Est GFR ( Amer) >60 Est GFR (Non-Af Amer) >60 BUN/Creatinine Ratio 19.7 Glucose 96 Calcium 8.5 Total Bilirubin 0.5 AST 10 L ALT 17 Alkaline Phosphatase 83 Total Protein 6.6 Albumin 2.4 L Globulin 4.2 Albumin/Globulin Ratio 0.6
--- NOTE | 2023-11-12 10:41 | CM.NOTE ---
Rounds made with Dr. Gonzalez, discussed with pt echo results and diagnosis of heart failure. No discharge today, continue to wean oxygen.
[2023-11-13] VITALS (13 sets, daily range): BP systolic 132–136; BP diastolic 81; PULSE 72–93; TEMP 36.5–36.6; O2SAT 81–92
[2023-11-13 05:38] LABS: Basophils Absolute Auto 0.1 10^3/uL (0.0-0.1); Basophils Percent Auto 0.8 % (0.2-2.0); Eosinophils Absolute Auto 0.5 10^3/uL (0.0-0.7); Eosinophils Percent Auto 6.2 % (0.9-7.0); Hematocrit 37.9 % (36.0-48.0); Hemoglobin 12.2 g/dL (12.0-16.0); Immature Granulocytes Abs Auto 0.02 10^3/uL (0.00-0.03); Immature Granulocytes Pct Auto 0.2 % (0.0-0.5); Lymphocytes Absolute Auto 2.3 10^3/uL (1.2-3.8); Lymphocytes Percent Auto 26.2 % (20.5-60.0); Mean Corpuscular HGB Conc 32.2 g/dL (29.9-35.2); Mean Corpuscular Hemoglobin 30.3 pg (26.7-34.0); Mean Corpuscular Volume 94.3 fL (81.0-99.0); Mean Platelet Volume 9.8 fL (9.5-13.5); Monocytes Absolute Auto 0.7 10^3/uL (0.3-0.8); Monocytes Percent Auto 7.9 % (1.7-12.0); Neutrophils Absolute Auto 5.1 10^3/uL (1.4-6.5); Neutrophils Percent Auto 58.7 % (43.0-75.0); Platelet Count 334 10^3/uL (150-450); Red Blood Count 4.02 10^6/uL (4.20-5.40); Red Cell Distribution Width 12.6 % (11.0-15.0); White Blood Count 8.7 10^3/uL (4.0-11.0)
[2023-11-13 06:06] LABS: Alanine Aminotransferase 22 U/L (14-59); Albumin Globulin Ratio 0.6; Albumin Level 2.5 g/dL (3.4-5.0); Alkaline Phosphatase 84 U/L (46-116); Anion Gap 10.2; Aspartate Amino Transferase 17 U/L (15-37); BUN Creatinine Ratio 17.1; Bilirubin Total 0.5 mg/dL (0.2-1.0); Calcium 8.8 mg/dL (8.5-10.1); Carbon Dioxide 29.7 mmol/L (21.0-32.0); Chloride 103 mmol/L (98-107); Estimated GFR (African America >60 (>=60); Estimated GFR (Non-African Ame >60 (>=60); Globulin 4.4 g/dL; Glucose 97 mg/dL (74-106); Potassium 3.9 mmol/L (3.5-5.1); Sodium 139 mmol/L (136-145); Total Protein 6.9 g/dL (6.4-8.2)
[2023-11-13] MEDS: FUROSEMIDE 40 MG/4 ML VIAL IVP (08:51)
[2023-11-13] MEDS: GUAIFENESIN 600 MG TAB.ER.12H PO (08:51)
[2023-11-13] MEDS: METOPROLOL SUCCINATE 25 MG TAB.ER.24H PO (08:51)
[2023-11-13] MEDS: APIXABAN 5 MG TABLET 10 MG PO (08:51)
[2023-11-13] MEDS: AMLODIPINE BESYLATE 5 MG TABLET 10 MG PO (08:51)
[2023-11-13] MEDS: LOSARTAN POTASSIUM 50 MG TABLET 100 MG PO (08:51)
[2023-11-13] MEDS: DULOXETINE HCL 30 MG CAPSULE.DR PO (08:51)
--- NOTE | 2023-11-13 12:03 | CM.NOTE ---
Rounds made with Dr. Gonzalez. Plan for discharge today after walk test completed. Ms. Sparrow in agreement.
--- NOTE | 2023-11-13 12:26 | SWNOTE1 ---
TIFFANY met with pt to discuss dc needs. Pt lives at home alone and her daughter lives 25 mins away. Pt uses a cane at home, gets around well. Pt will need home oxygen at discharge. Pt has no preference and said she just moved here in June. She knows where [place] and [place] are. Pt is alright with using [facility] in [place]. TIFFANY sent over face sheet, script, walk test, and documentation from yesterday to [facility] [place]. Pt will need 3 liters of home oxygen.
--- NOTE | 2023-11-13 13:44 | P.DS_ITS ---
DS: Providers Provider Date of admission: 11/10/23 15:44 Primary care physician: Non-Staff Physician, Admitting clinician: Shaikh Lisa Attending physician on admission: Shaikh Lisa Consults: 11/10/23 14:44 Occupational Therapy Eval and Treat Routine Reason for consultation: Ambulatory dysfunction/weakness Physical Therapy Eval and Treat Routine Reason for consultation: Ambulatory dysfunction/weakness Attending physician on discharge: Shaikh Lisa Discharging clinician: Shaikh Lisa Anticipated date of discharge: 11/13/23 DS: Diagnosis Discharge Diagnosis (1) Acute respiratory failure with hypoxia: Assessment and plan: Still needing 3 L O2 via NC On exertion. Due to Acute PE and acute on chronic diastolic HF Will d/c on O2. Will d/c on lasix 40 q12 for 3 days, she can then resume 40 mg daily afterwards (2) Acute on chronic diastolic heart failure: Assessment and plan: Improved with IV lasix. Will d/c on oral lasix 40 q12 for 3 days. She can then resume 40 mg once daily (3) Bilateral pulmonary embolism: Assessment and plan: Unprovoked PE, will likely need senior living anticoagulation. Stable for d/c on oral eliquis (4) Right upper lobe pneumonia: Assessment and plan: Suspect on admission but ruled out. Qualifiers: Pneumonia type: due to unspecified organism Qualified Code(s): J18.9 - Pneumonia, unspecified organism (5) Elevated brain natriuretic peptide (BNP) level: Assessment and plan: due to acute on chronic diastolic HF. (6) Lactic acid acidosis: Assessment and plan: resolved (7) Depression: Assessment and plan: C/w home meds Qualifiers: Depression Type: major depressive disorder Major depression recurrence: recurrent Active/Remission status: in full remission Qualified Code(s): F33.42 - Major depressive disorder, recurrent, in full remission (8) HTN (hypertension): Assessment and plan: C/w home meds Qualifiers: Hypertension type: primary hypertension Qualified Code(s): I10 - Essential (primary) hypertension DS: Summary Hospital Course Hospital Course: 63 y o female presented with SOB, hypoxia, initially thought to be from Pneumonia but further work up revealed acute bilateral PE. She was hypoxic upon arrival and required 6-7 L O2 via NC. She was initially treated with IV abx for CAP (later discontinued), Lovenox for Acute PE (later transitioned to Eliquis). She had 2D ECHO that showed normal LVEF but diastolic function could not be determined. His IVC was dilated indicating volume overload. She was started on IV lasix that helped improve her symptoms and hypoxia. She is comfortable on 1-2 L at rest and requires 3 L O2 via NC upon exertion. She is stable for discharge on home O2. She is still a little volume overload and was asked to use lasix 40 q12 for 3 days and then go back to daily dosing. Follow up with PCP in one week Status at Discharge Functional status at discharge: independent ambulation Overall status at discharge: patient is progressing back to baseline Time Spent with Patient Time attestation: Total time spent providing and/or coordinating discharge services: Time spent: greater than 30 minutes Exam Constitutional Vital Signs, click to edit/add: Last Vital Signs Temp 97.7 F 11/13/23 07:59 Pulse 93 H 11/13/23 11:46 Resp 22 H 11/13/23 07:59 BP 132/81 11/13/23 07:59 Pulse Ox 92 L 11/13/23 10:54 O2 Del Method Nasal Cannula 11/13/23 10:54 O2 Flow Rate 2 11/13/23 10:54 Documenting provider has reviewed patient's vital signs: yes Common normals: no apparent distress and oriented x3 Nutritional appearance: obese Respiratory Common normals: normal respiratory effort, no use of accessory muscles and clear to auscultation bilaterally Effort & inspection: able to speak in complete sentences Cardio Common normals: no JVD, regular rate, regular rhythm, S1 normal heart sound and S2 normal heart sound Extremity General: edema (Bilateral , Left LE > RLE) Neuro Common normals: oriented x3, CN's II-XII intact bilaterally, moves all extremities, no focal motor deficits and no sensory deficits noted Psych Common normals: mental status grossly normal, denies homicidal ideation and denies suicidal ideation DS: Data Data Completed and Pending Labs on day of discharge: Labs from last 24 hours 11/13/23 04:57 WBC 8.7 RBC 4.02 L Hgb 12.2 Hct 37.9 MCV 94.3 MCH 30.3 MCHC 32.2 RDW 12.6 Plt Count 334 MPV 9.8 Neut % (Auto) 58.7 Lymph % (Auto) 26.2 [place] % (Auto) 7.9 Eos % (Auto) 6.2 Baso % (Auto) 0.8 Neut # (Auto) 5.1 Lymph # (Auto) 2.3 [place] # (Auto) 0.7 Eos # (Auto) 0.5 Baso # (Auto) 0.1 Abs Immat Gran (auto) 0.02 Imm/Tot Granulo (auto) 0.2 Sodium 139 Potassium 3.9 Chloride 103 Carbon Dioxide 29.7 Anion Gap 10.2 BUN 13.0 Creatinine 0.76 Est GFR ( Amer) >60 Est GFR (Non-Af Amer) >60 BUN/Creatinine Ratio 17.1 Glucose 97 Calcium 8.8 Total Bilirubin 0.5 AST 17 ALT 22 Alkaline Phosphatase 84 Total Protein 6.9 Albumin 2.5 L Globulin 4.4 Albumin/Globulin Ratio 0.6 Discharge Plan Discharge Disposition: Home, Self-Care Condition: Fair Discharge Medications: [place] DVT-PE Treat 30D Start 5 mg (74 tabs) tablets,dose pack 5 mg PO BID Qty: 74 0RF Continued losartan [Cozaar] 100 mg tablet 100 mg PO DAILY amlodipine [Norvasc] 10 mg tablet 10 mg PO DAILY furosemide 40 mg tablet 40 mg PO DAILY Patient Comments: Can take 1 to 1 1/2 tabs daily depending on size of her leg duloxetine [Cymbalta] 30 mg capsule,delayed release(DR/EC) 30 mg PO DAILY metoprolol succinate 25 mg tablet extended release 24 hr 25 mg PO DAILY Activity: increase activity as tolerated Diet: advance to your usual diet Print Language: Swiss Forms: Portal Instructions Follow Up Appointments: Please call Elissa Gonzales NP to review medications prior to scheduling a follow up appt. for 1 week following discharge. [phone] [address] [facility] [address] is also accepting new patients [phone] [address] [facility] Use 40 mg lasix twice a day for 3 days and then switch to once daily.
--- NOTE | 2023-11-13 14:00 | SWNOTE1 ---
TIFFANY sent over dc summary to [facility]
--- NOTE | 2023-11-13 14:21 | SWNOTE1 ---
TIFFANY called [facility] and the [facility] ran everything and all benefits came back good. They did want to know if pt is good with having a portable oxygen concentrator and if doctor is alright with it. TIFFANY messaged doctor, waiting to hear back.
--- NOTE | 2023-11-13 14:24 | SWNOTE1 ---
Doctor messaged back and he is alright with this. SW let nursing know pt is good to be dc and SW informed pt to call [facility] once she is home. Pt is going home on 3 liters of oxygen.
--- NOTE | 2023-11-13 14:33 | SWNOTE1 ---
SW provided pt with a tank, pt's daughter in room as well. SW informed them to call [facility] once they are on way home or when home and they will deliver rest of supplies. They voiced understanding. [facility] number is provided in discharge paperwork. Nursing notified that pt was ready for dc and oxygen is all set.
--- NOTE | 2023-11-18 14:06 | SWNOTE1 ---
Contacted 11/18/23
--- NOTE | 2023-11-18 14:07 | CM.DCFOLLOWU ---
Person spoke with:patient How are you feeling? well How is your pain? no pain Did you understand your discharge instructions? yes Do you have any questions about your discharge instructions? no questions Were you given any prescriptions at discharge? yes Were you able to get your prescriptions filled?yes, pharmacy was out of [place], she was able to contact the hospitalist and go to his office and get [place] Do you understand how to take your medications as ordered? yes Do you have any questions about your follow up appointment and do you plan to keep your follow up appointment? no questions, was able to get in to Vicky Gonzales for follow up Is there anything else that you would like to discuss? no Questions/Comments/Concerns/Other: N/A
== END 2023-11-13 15:12 | disposition home or self-care (01) | DRG 175 ==
LOC: ER 14:00 → MS 15:55 → ICU 11-11 09:03 → MS 11-12 18:03
PROVIDERS: Nurse Practitioner; Admitting Provider Internal Medicine; Emergency Provider Emergency Medicine; Visit Provider Internal Medicine
DX: I26.99 Other pulmonary embolism without acute cor pulmonale (principal); I50.33 Acute on chronic diastolic (congestive) heart failure; J96.01 Acute respiratory failure with hypoxia; Z68.44 Body mass index [BMI] 60.0-69.9, adult; E87.20 Acidosis, unspecified; E66.01 Morbid (severe) obesity due to excess calories; I10 Essential (primary) hypertension; F33.42 Major depressive disorder, recurrent, in full remission; Z87.891 Personal history of nicotine dependence; Z79.899 Other long term (current) drug therapy
CPT/HCPCS: 0202U; 36415; 71045; 71275; 80048; 80053; 83605; 83880; 84145; 84484; 85025; 85378; 87070; 87804; 87811; 93005; 93306; 94667; 94668; 94761; 96365; 96366; 96367; 96372; 96375; 96376; 97161; 97165; 97535; 99285; J0456; Q9967

== ENCOUNTER 2024-03-09 08:21 | Outpatient (OUT) | payer OTHER, SELFPAY ==
--- OUTSIDE RECORDS SUMMARY | 2024-03-09 08:27 | XMS_ITS | CCD ---
Author Organization [facility] Inform ion Partnership [facility] Care Team Providers Care Lever Operator Name Role Phone MARYURI LEVY Attending Unavailable Problems Problem Classification Problem Date Documented Da te Episodic/Chronic Congestive heart failure; nonhypertensive (2 sources) Chronic diastolic (congestive) heart failure; Translations: [Chronic diastolic (congestive) heart failure] Onset: 12-08-2023 Chronic Results Test Name Value Interpretation Reference Range Facil ity Office Visiton 12-08-2023 Follow-up visit [id number] Lorraine Wu 1960 F Date Provider Department Center 12/08/2023 Ariella-MARYURI LEVY [facility] Family History Problem Relation Age of Onset Heart attack Mother Heart attack Father Stroke Sister Crohn's disease Sister Heart attack Brother Family Status - Relation Status Age at Mother Father Sister Brother Level of Service:36004 [place] OFFICE/OUTPATIENT NEW LOW MDM 30 MINUTES Normal [facility] Encounters Encounter Date Encounter Type Care Provider Facility Start: 12-08-2023 End: 12-08-2023 ambulatory MARYURI LEVY [facility] Payers Date Payer Category Payer Unknown [id number] Progress note 12-08-2023 Note Date & Type Note Facility 12-08-2023 Note [facility] Cardiology Clinic Note Chief Complaint: New patient here to establish care. Ref from Elissa Gonzales CNP for hx of PE and chronic diastolic heart failure. She was admitted last month to [facility] and diagnosed with PE. Started on Eliquis and so far no abnormal bleeding. Both parents and a brother have had ID's. Stopped smoking in 1988. She used to see cardiology in [place]. She recently moved in [place]. HPI: 63-year-old morbidly obese woman here to establish care Was diagnosed with a pulmonary embolism 11/13/2023: Discharged from [facility] recently after acute respiratory failure with hypoxia; found to have bilateral unprovoked pulmonary embolism. Discharged on oral Eliquis. Also found to have right upper lobe pneumonia and elevated BNP. Lactic acidosis. Past medical history: Morbid obesity, pulmonary embolism, heart failure with preserved ejection fraction Cardiology ROS: Review of Systems Cardiovascular: Positive for dyspnea on exertion and leg swelling. Respiratory: Positive for cough. All other systems reviewed and are negative. Past Medical History She has no past medical history on file. Surgical History She has no past surgical history on file. Social History She has no history on file for tobacco use, alcohol use, and drug use. Family History No family history on file. Allergies Patient has no allergy information on record. Medications No current outpatient medications on file. Last Recorded Vitals BP 128/74 (BP Location: Left wrist, Patient Position: Sitting) Pulse 68 Ht 1.6 m (5' 3 ) Wt (!) 155 kg (341 lb) SpO2 95% BMI 60.41 kg/m??? Physical Examination: GENERAL: alert and oriented x3, well developed, in no acute distress. HEAD: atraumatic, normocephalic. EYES: LASHA, EOMI. NECK: trachea midline, no JVD present, no carotid bruits present. CARDIAC: S1, S2 present. RRR. No murmur, rubs, or gallops. RESPIRATORY: CTAB, no increased effort of breathing, no rales, rhonchi, or wheezing. ABDOMEN: soft, nontender, nondistended. EXTREMITIES: no lower extremity edema, peripheral pulses are 2+ bilaterally. No rash/skin discoloration present. NEURO: strength/sensation equal and symmetric in bilateral upper and lower extremities. PSYCH: appropriate mood, affect, and judgement. Investigations: Miscellaneous Results - (ABNORMAL) TRANSTHORACIC ECHOCARDIOGRAM (TTE) COMPLETE (07/03/2020 5:50 PM EST) Narrative CV PACS - 07/04/2020 3:17 PM EST Left ventricle cavity size is normal. Left ventricular systolic function is in the normal range. EF by 2D [place] biplane is 56%. Left ventricle wall thickness is normal. Right ventricle cavity is normal. Right ventricular systolic function is normal. Aortic annular thickening or calcfication is present. Left Ventricle Left ventricle cavity size is normal. There is concentric remodeling of the left ventricle. Systolic function is normal. The quantitative EF by 2D [place] biplane is 56%. There are no regional LV wall motion abnormalities. There is no diastolic dysfunction. Right Ventricle Right ventricle cavity appears normal. Systolic function is normal. Left Atrium Left atrium cavity size is normal. Right Atrium Right atrium cavity is normal. IVC/SVC Inferior vena cava structure is normal. Mitral Valve The leaflets are not thickened and exhibit normal excursion. There is mild annular calcification. There is trace regurgitation. There is no evidence of mitral valve stenosis. Tricuspid Valve Tricuspid valve structure is normal. There is trace regurgitation. There is no evidence of tricuspid valve stenosis. Aortic Valve The aortic valve is trileaflet. There is trace regurgitation. There is no evidence of aortic valve stenosis. Pulmonic Valve Pulmonic valve structure is normal. There is no regurgitation or stenosis. Ascending Aorta The aorta appears normal in size. Pericardium There is an anterior fat pad. There is no pericardial effusion. Study Details Overall the study quality was adequate. Echocardiogram 11/2023: Global left ventricular systolic function is difficult to assess but appears preserved; EF is estimated to be 55 to 60%. Valves are poorly seen; no obvious valve abnormalities. Anterior free space; trivial effusion versus fat pad. RVSP 48 mmHg. Assessment: Acute pulmonary embolism; on Eliquis History of heart failure with preserved ejection fraction Dyspnea on exertion Morbid obesity Essential hypertension Family history of coronary artery disease Plan: Continue current medical therapy including Lasix She is on Eliquis; given unprovoked PE this would likely need to be lifelong. Recommend referral to lottery sales clerk as clinically appropriate She is to monitor her symptoms and let me know of any worsening Return to clinic in 3 months; If her symptoms are worse, we will consider an ischemic workup at that juncture Maryuri Olmstead (more content not included)... [facility] Summary Purpose Family History No Family History Records Found Advance Directives No Advanced Directives Records Found Additional Source Comments INFORMATION SOURCE (unrecogn ized section and content) DATE CREATED AUTHOR 12/08/2023 [facility] FOR RECORDS PERTAINING TO PATIENTS WHO ARE OR HAVE BEEN ENROLLED IN A CHEMICAL DEPENDENCY/SUBSTANCEABUSE PROGRAM, SOME INFORMATION MAY BE OMITTED. This clinical summary was aggregated from multiple sources. Caution should be exercised in using it in the provision of clinical care. This summary normalizes information from multiple sources, and as a consequence, information in this document may materially change the coding, format and clinical context of patient data. In addition, data may be omitted in some cases. CLINICAL DECISIONS SHOULD BE BASED ON THE PRIMARY CLINICAL RECORDS. [facility] [employer] [facility]. provides no warranty or guarantee of the accuracy or completeness of information in this document.
[2024-03-09 08:46] LABS: Basophils Absolute Auto 0.1 10^3/uL (0.0-0.1); Basophils Percent Auto 0.7 % (0.2-2.0); Eosinophils Absolute Auto 0.4 10^3/uL (0.0-0.7); Eosinophils Percent Auto 4.9 % (0.9-7.0); Hematocrit 42.9 % (36.0-48.0); Hemoglobin 14.4 g/dL (12.0-16.0); Immature Granulocytes Abs Auto 0.01 10^3/uL (0.00-0.03); Immature Granulocytes Pct Auto 0.1 % (0.0-0.5); Lymphocytes Absolute Auto 2.4 10^3/uL (1.2-3.8); Lymphocytes Percent Auto 30.5 % (20.5-60.0); Mean Corpuscular HGB Conc 33.6 g/dL (29.9-35.2); Mean Corpuscular Hemoglobin 31.3 pg (26.7-34.0); Mean Corpuscular Volume 93.3 fL (81.0-99.0); Mean Platelet Volume 9.6 fL (9.5-13.5); Monocytes Absolute Auto 0.5 10^3/uL (0.3-0.8); Monocytes Percent Auto 5.9 % (1.7-12.0); Neutrophils Absolute Auto 4.6 10^3/uL (1.4-6.5); Neutrophils Percent Auto 57.9 % (43.0-75.0); Platelet Count 356 10^3/uL (150-450)
[2024-03-09 09:02] LABS: Estimated Average Glucose 108 mg/dL; Glycohemoglobin A1C 5.4 % (4.5-6.2)
[2024-03-09 09:33] LABS: Alanine Aminotransferase 27 U/L (14-59); Albumin Globulin Ratio 0.8; Albumin Level 3.1 g/dL (3.4-5.0); Alkaline Phosphatase 90 U/L (46-116); Anion Gap 14.6; Aspartate Amino Transferase 15 U/L (15-37); Bilirubin Total 0.5 mg/dL (0.2-1.0); Calcium 8.8 mg/dL (8.5-10.1); Carbon Dioxide 25.4 mmol/L (21.0-32.0); Chloride 104 mmol/L (98-107); Chol HDL Ratio 3.1; Cholesterol 159 mg/dL (<=200); Estimated GFR (African America >60 (>=60); Estimated GFR (Non-African Ame >60 (>=60); Free T3 2.69 pg/mL (2.18-3.98); Glucose 107 mg/dL (74-106); HDL Cholesterol 51 mg/dL (40-60); LDL Cholesterol Calculated 89.8 mg/dL; Sodium 140 mmol/L (136-145); Thyroid Stimulating Hormone 4.552 uIU/mL (0.358-3.740); Total Protein 7.1 g/dL (6.4-8.2); Triglycerides 91 mg/dL (<=150); VLDL CHOLESTEROL 18.2 mg/dL
[2024-03-10 14:09] LABS: Insulin 19.7 uIU/mL (2.6-24.9)
== END 2024-03-09 08:22 | disposition home or self-care (01) ==
LOC: LAB 08:23
PROVIDERS: PCP Nurse Practitioner Family; Visit Provider Nurse Practitioner Family
DX: I10 Essential (primary) hypertension (principal)
CPT/HCPCS: 36415; 80053; 80061; 83036; 83525; 84436; 84443; 84481; 85025